=== PATIENT | female | born 1955 | race Hispanic/Latino ===

== ENCOUNTER 2022-02-06 09:50 | Outpatient (CLI) | payer MEDICARE | END 2022-02-06 09:51 | disposition home or self-care (01) | LOC: CSHULT 09:50 | PROVIDERS: ATTEND Family Medicine | DX: R74.01 Elevation of levels of liver transaminase levels (principal); K76.0 Fatty (change of) liver, not elsewhere classified | CPT/HCPCS: 76705 ==

== ENCOUNTER 2024-02-18 18:32 | Emergency (ER) | payer OTHER ==
[2024-02-18] MEDS ORDERED: Ondansetron PF 4 MG/2 ML Vial ONE (20:03)
[2024-02-18] MEDS ORDERED: Morphine 4 MG/ML VIAL ONE (20:03)
[2024-02-18 20:26] LABS: #Basophils 0.01 10x3/uL (0.0-0.2); #Eosinophils 0.03 10x3/uL (0.0-0.5); #Monocytes 0.11 10x3/uL (0.0-1.1); #Neutrophils 7.55 10x3/uL (1.5-8.4); %Basophils 0.1 % (0.0-2.0); %Eosinophils 0.3 % (0.0-6.0); %Lymphocytes 21.8 % (18.0-47.0); %Monocytes 1.1 % (0.0-10.0); %Neutrophils 76.4 % (40.0-75.0); Hematocrit 40.8 % (34.9-44.5); Hemoglobin 13.5 g/dL (12.0-15.5); Mean Corpuscular HGB CONC 33.1 g/dL (32.0-36.0); Mean Corpuscular Hemoglobin 28.7 pg (27.0-33.0); Mean Corpuscular Volume 86.8 fL (81.6-98.3); Mean Platelet Volume 10.7 fL (7.4-10.4); Platelet Count 347 10x3/uL (150-450); White Blood Cell (WBC) Count 9.9 10x3/uL (3.5-10.5)
[2024-02-18 20:46] LABS: Troponin I Less than 0.010 ng/mL (< 0.028)
[2024-02-18 20:47] LABS: ALT (SGPT) 22 U/L (8-55); AST (SGOT) 22 U/L (5-34); Albumin 3.8 g/dL (3.4-4.8); Alkaline Phosphatase 66 U/L (40-110); Anion Gap 18 mmol/L (10-20); BUN (Urea Nitrogen) 34 mg/dL (9.8-20.1); Bilirubin, Total 0.3 mg/dL (0.2-1.2); CK (CPK) 43 U/L (29-168); Calc. Creatinine Clearance 0 mL/min (70-130); Calcium 9.2 mg/dL (7.8-10.44); Carbon Dioxide 19 mmol/L (23-31); Chloride 100 mmol/L (98-107); Estimated GFR 70; Globulin 3.4 g/dL (2.4-3.5); Glucose 131 mg/dL (80-115); Lipase 41 U/L (8-78); Potassium 4.7 mmol/L (3.5-5.1); Protein, Total 7.2 g/dL (5.8-8.1); Sodium 132 mmol/L (136-145)
[2024-02-18 21:51] LABS: Bilirubin Neg (Negative); Blood, Urine Negative (Negative); Clarity Slightly Cloudy (Clear); Glucose, Urine (Dipstick) Normal (Negative); Ketone, Urine Negative (Negative); Leukocyte 100 (Negative); Nitrite Positive (Negative); Protein, Urine (Dipstick) 30 mg/dl (Neg-Trace); Urobilinogen Normal mg/dL (Less than 2)
[2024-02-18] MEDS ORDERED: cefTRIAXone (ROCEPHIN) 2 GM VIAL ONE (22:25)
[2024-02-18 22:40] LABS: CAUTI Indications for Culture Pelvic or flank pain; RBC/HPF 0-3 HPF (0-3)
[2024-02-18 22:41] LABS: Bacteria/HPF 4+ HPF (None Seen); Mucous/LPF 1+ LPF (<2+); Transitional Epithelial 0-3 HPF (None Seen)
[2024-02-18 22:42] LABS: Yeast-Budding Rare HPF (None Seen)
[2024-02-18 22:43] LABS: Urine Culture Reflex No No
== END 2024-02-18 23:02 | disposition home or self-care (01) ==
LOC: CSHERS 18:32
DX: M79.10 Myalgia, unspecified site (principal); N30.00 Acute cystitis without hematuria; E11.9 Type 2 diabetes mellitus without complications; I10 Essential (primary) hypertension
CPT/HCPCS: 71045; 80053; 81001; 82550; 83690; 84484; 85025; 87428; 93005; J0696; J2272; J2405; 36415; 96365; 96375

== ENCOUNTER 2024-04-04 15:08 | Outpatient (CLI) | payer OTHER | END 2024-04-04 15:09 | disposition home or self-care (01) | LOC: CSHRAD 15:08 | PROVIDERS: ATTEND Student in an Organized Health Care Education/Training Program | DX: R06.02 Shortness of breath (principal) | CPT/HCPCS: 71046 ==

== ENCOUNTER 2025-04-11 13:13 | Outpatient (CLI) | payer OTHER | END 2025-04-11 13:14 | disposition home or self-care (01) | LOC: CSHMAMMO 13:13 | PROVIDERS: ATTEND Radiology Radiation Oncology | DX: Z08 Encounter for follow-up examination after completed treatment for malignant neoplasm (principal); Z85.3 Personal history of malignant neoplasm of breast | CPT/HCPCS: 77066; G0279 ==